=== PATIENT | male | born 2000 | race Caucasian/White ===

== ENCOUNTER 2019-06-10 13:12 | Emergency (ER) | payer SELFPAY ==
[~2019-06-10] VITALS: Ht 172 cm; Wt 70.0 kg
--- NOTE | 2019-06-10 15:16 | ED Lower Extremity ---
General Chief Complaint: Lower Extremity Stated Complaint: FEET SWELLING/PAIN Nursing Triage Note: bilateral feet swelling Nursing Sepsis Screen: No Definite Risk Source: patient Exam Limitations: no limitations History of Present Illness Date Seen by Provider: Jun 10, 2019 Time Seen by Provider: 15:01 Initial Comments Here with bilateral foot pain and swelling. Has moved here recently from [place]. No recent injury. Unsure of the cause. Onset: last week Severity: mild, moderate Method of Injury: unknown Modifying Factors: Improves With Rest Allergies and Home Medications Allergies Coded Allergies: No Known Drug Allergies (Unverified , 06/10/19) Patient Home Medication List Home Medication List Reviewed: Yes Review of Systems Constitutional: no symptoms reported Respiratory: no symptoms reported Cardiovascular: no symptoms reported Musculoskeletal: see HPI, muscle pain Skin: change in color, dryness Past Jgnzaah-Dqwffc-Weigtz Hx Past Med/Social Hx: Reviewed Nursing Past Med/Soc Hx Patient Social History Alcohol Use: Denies Use Recreational Drug Use: No Smoking Status: Current Everyday Smoker Recent Foreign Travel: No Contact w/Someone Who Travel: No Recent Infectious Disease Expo: No Recent Hopitalizations: No Seasonal Allergies Seasonal Allergies: No Past Medical History Surgeries: No Respiratory: No Cardiac: No Neurological: No Genitourinary: No Gastrointestinal: No Musculoskeletal: No Endocrine: No HEENT: No Cancer: No Family Medical History Reviewed Nursing Family Hx Physical Exam Vital Signs Vital Signs - First Documented 06/10/19 13:35 Temp 36.5 Pulse 81 Resp 18 B/P (MAP) 99/64 (76) Pulse Ox 98 O2 Delivery Room Air Capillary Refill : Less Than 3 Seconds Height, Weight, BMI Height: '" Weight: lbs. oz. kg; 23.00 BMI Method: General Appearance: WD/WN, no apparent distress Cardiovascular: regular rate, rhythm, no murmur Respiratory: lungs clear, normal breath sounds Feet: bilateral foot other (bilateral feet have signs of tinea pedis especially between the toes and on the balls of the foot.) Neurologic/Psychiatric: alert, oriented x 3 Skin: normal color, warm/dry, other (skin findings as above) Progress/Results/Core Measures Results/Orders Vital Signs/I&O 06/10/19 13:35 Temp 36.5 Pulse 81 Resp 18 B/P (MAP) 99/64 (76) Pulse Ox 98 O2 Delivery Room Air Blood Pressure Mean: 76 Progress Progress Note : Progress Note Seen and evaluated. Discharged home with return precautions. Patient verbalize understanding instructions and agreement with plan. Departure Impression Primary Impression: Tinea pedis of both feet Disposition: 01 HOME, SELF-CARE Condition: Improved Departure-Patient Inst. Decision time for Depature: 15:23 Patient Instructions: Athlete's Foot (DC) Add. Discharge Instructions: All discharge instructions reviewed with patient and/or family. Voiced understanding. You may utilize [id number] athlete's foot cream or powder and use per package directions. Return for worse pain, fever, vomiting, weakness, breathing problems or other concerns as needed. You may take ibuprofen 600 mg every 8 hours as needed for pain. You may take Tylenol/acetaminophen 1000 mg every 8 hours as needed. Change her socks once or twice daily until improved. You should consider new shoes or insoles as well. JEM CASAS MD Jun 10, 2019 15:16
[2019-06-10 15:28] VITALS: BP 99/64
--- OUTSIDE RECORDS SUMMARY | 2019-06-12 16:48 | XMS REPORT ---
Author Author Oscar ABEBE Organization [facility] Address [address] [place] [address] Care Team Providers Care Patient Support Tech Name Role Phone KATIUSKA ABEBETA Unavailable PROBLEMS Type Condition ICD9-CM Code [id number] Code Onset Dates Condition S tatus SNOMED Code Problem Primary insomnia F51.01 Active 397 2003 ALLERGIES No Known Allergies ENCOUNTERS Encounter Location Date Diagnosis [facility] [address] [facility] [id number] [address] [place] [id number] Dec, Acute pain of right knee M25 .[address] [facility] [address] [facility] [id number] [address] [place] [id number] Sep, Primary insomnia F51.01 ; Ac [place] midline low back pain without sciatica M54.5 ; Screening for hyperlipidemia Z13.220 ; Screening for diabetes mellitus Z13.1 and Screening for other and unspecified deficiency anemia Z13.0 IMMUNIZATIONS No Known Immunizations SOCIAL HISTORY Never Assessed REASON FOR VISIT pain in his right knee, wants to be checked to see if he is a diabetic Jean Carlos Montez MA PLAN OF CARE Activity Details Follow Up if not improving with PCP or reg follow up Reason:knee pain VITAL SIGNS Height 67 in 2018-01-23 Weight 133.5 lbs 2018-01-23 Temperature 97.8 degrees Fahrenheit 2018-01-23 Heart Rate 71 bpm 2018-01-23 Respiratory Rate 20 2018-01-23 BMI 20.91 kg/m2 2018-01-23 Blood pressure systolic 126 mmHg 2018-01-23 Blood pressure diastolic 64 mmHg 2018-01-23 MEDICATIONS Medication Instructions Dosage Frequency Start Date End Date Duration S tatus Trazodone HCl 50 mg Orally Once a day 1 tablet at bedtime as needed 24h Sep, Active RESULTS No Results PROCEDURES No Known procedures INSTRUCTIONS MEDICATIONS ADMINISTERED No Known Medications MEDICAL (GENERAL) HISTORY Type Description Date Medical History depression Surgical History No know Surgical history Hospitalization [facility] [phone]
--- OUTSIDE RECORDS SUMMARY | 2019-06-12 16:48 | XMS REPORT | Continuity of Care Document ---
Author Organization Unknown Address Unknown Phone Unavailable Allergies Active Description Code Type Severity Reaction Onset Reported/Identified Relationship to Patient Clinical Status Yes No Known Medication Allergies Drug N/A N/A Yes No Known Drug Allergies [id number] Drug Allergy Unknown N/A 06/10/2019 Medications There is no data. Problems Date Dx Coded Attending Type Code Diagnosis Diagnosed By 10/03/2018 Toby Tavarez Final M60. 80 Other myositis, unspecified site 10/03/2018 Toby Tavarez Reason For Visit R10.84 Generalized abdominal pain 10/03/2018 Final M60.80 Other myositis, unspecified site 10/03/2018 Reason For Visit R10.84 Generalized abdominal pain 10/21/2018 Jeniffer Walter Reason For Visit M54.9 Dorsalgia, unspecified 10/21/2018 Jeniffer Walter Final M62.83 8 Other muscle spasm 10/21/2018 Jeniffer Walter Final Z68.1 Body mass index (BMI) 19.9 or less, adult 12/12/2018 Final M62.830 Muscle spasm of back 12/12/2018 Reason For Visit R00.0 Tachycardia, unspecified 12/12/2018 Final R07.9 C hest pain, unspecified 12/12/2018 Final Z68.1 B saeed mass index (BMI) 19.9 or less, adult 01/09/2019 Reason For Visit M25.50 Pain in unspecified joint 01/09/2019 Final M54.9 D orsalgia, unspecified 01/09/2019 Final R07.9 C hest pain, unspecified 01/09/2019 Final Z68.1 B saeed mass index (BMI) 19.9 or less, adult 01/09/2019 Final Z72.0 T obacco use 01/10/2019 Final M25.50 Pain in unspecified joint 01/10/2019 Reason For Visit M54.9 Dorsalgia, unspecified 01/10/2019 Final R00.0 T achycardia, unspecified 01/10/2019 Final R07.9 C hest pain, unspecified 01/17/2019 Final M54.9 D orsalgia, unspecified 01/17/2019 Final R00.0 T achycardia, unspecified 01/17/2019 Reason For Visit R07.9 Chest pain, unspecified Procedures There is no data. Results Test Result Range Manual Differential () - 10/03/18 14:3 5 Segs Man 43 % 44-68 Lymph Man 23 % 25-44 Monocyte Man 9 % 0-7 Eos Man 24 % 0-4 Basophil Man 1 % 0-2 U Drug Scrn w/ QC - 10/03/18 14:45 U Amph Scrn Neg "" Neg U Catarina Scrn Neg "" Neg U Benzodia Scrn Neg "" Neg U Cannab Scrn Neg "" Neg U Cocaine Scrn Neg "" Neg U Opiate Scrn Neg "" Neg U PCP Scrn Neg "" Neg U MDMA Scrn Neg "" Neg U Oxy Scrn Neg "" Neg U Propoxy Scrn Neg "" Neg U TCA Scrn Presumptive Pos "" Neg QC UDS Valid "" Lot Number UDS [id number] "" Exp Date UDS [id number] "" UA - 10/03/18 14:45 UA Color Yellow "" UA Appear Clear "" UA pH 7.0 "" 5.5-7.5 UA Spec Grav 1.020 "" 1.010-1.020 UA Glucose Negative "" UA Bili Negative "" UA Ketones Negative "" UA Blood Negative "" UA Protein Negative "" UA Urobilinogen 0.2 "" 0.2-1.0 UA Nitrite Negative "" UA Leuk Est Negative "" UA Microscopic - 10/03/18 14:45 UA WBC None Seen "" UA RBC None Seen "" UA Bacteria None Seen "" Culture? No "" SHAINA IFA Screen w/Refl to Titer and Patte - 01/10/19 15:59 Shaina Screen, IFA QST NEGATIVE "" NEGATIVE Encounters ACCT No. Visit Date/Time Discharge Status Pt. Type Provider Facility Loc./Unit Complaint [id number] 10/04/2018 15:28:00 10/04/2018 23:59: 59 [facility] Outpatient Jenifefr Walter [facility] [id number] 10/03/2018 14:13:00 10/03/2018 15:35 :00 DIS Emergency Toby Tavarez ER [id number] 01/17/2019 14:00:00 Document Registration [id number] 01/10/2019 15:17:00 Document Registration [id number] 12/12/2018 15:35:00 Document Registration [id number] 12/04/2018 09:10:00 Document Registration [id number] 11/28/2018 09:46:00 Document Registration [id number] 10/21/2018 10:36:00 Document Registration [id number] 10/09/2018 15:13:00 Document Registration [id number] 06/10/2019 13:13:00 020 15:28:00 DIS Emergency YESSENIA NICHOLS, JEM Donaldson [facility] FEET SWELLING/PAIN [id number] 01/10/2019 15:15:00 Document Registration [id number] 10/03/2018 14:13:00 Document Registration
--- OUTSIDE RECORDS SUMMARY | 2019-06-12 16:48 | XMS REPORT ---
Author Author Oscar ABEBE Organization [facility] Address [address] [place] [address] Care Team Providers Care Medical Collector Name Role Phone SHAYY ABEBE Unavailable PROBLEMS Type Condition ICD9-CM Code [id number] Code Onset Dates Condition S tatus SNOMED Code Problem Primary insomnia F51.01 Active 397 2003 ALLERGIES No Known Allergies ENCOUNTERS Encounter Location Date Diagnosis [facility] [address] [facility] [id number] [address] [place] [phone] Sep, Primary insomnia F51.01 ; Ac [place] midline low back pain without sciatica M54.5 ; Screening for hyperlipidemia Z13.220 ; Screening for diabetes mellitus Z13.1 and Screening for other and unspecified deficiency anemia Z13.0 IMMUNIZATIONS No Known Immunizations SOCIAL HISTORY Never Assessed REASON FOR VISIT Establish Care, PT wants to discuss being placed back on his former medications but is in the process of transfering care from [facility] in [place], [place]. -Darren SCHMITZ PLAN OF CARE Activity Details Follow Up 3 months or as indicated by lab Reason:insomnia VITAL SIGNS Height 67 in 2017-10-16 Weight 130.7 lbs 2017-10-16 Temperature 98.1 degrees Fahrenheit 2017-10-16 Heart Rate 83 bpm 2017-10-16 Respiratory Rate 20 2017-10-16 Oximetry 97 % 2017-10-16 BMI 20.47 kg/m2 2017-10-16 Blood pressure systolic 128 mmHg 2017-10-16 Blood pressure diastolic 68 mmHg 2017-10-16 MEDICATIONS Medication Instructions Dosage Frequency Start Date End Date Duration S tatus Trazodone HCl 50 mg Orally Once a day 1 tablet at bedtime as needed 24h Sep, Active RESULTS No Results PROCEDURES No Known procedures INSTRUCTIONS MEDICATIONS ADMINISTERED No Known Medications MEDICAL (GENERAL) HISTORY Type Description Date Medical History depression Hospitalization History [facility]
== END 2019-06-10 15:28 | disposition home or self-care (01) ==
LOC: ER 13:13
DX: B35.3 Tinea pedis (principal); F17.200 Nicotine dependence, unspecified, uncomplicated
CPT/HCPCS: 99282